=== PATIENT | female | born 1950 | race Caucasian/White ===

== ENCOUNTER 2017-12-24 21:56 | Inpatient (IN) | payer MEDICARE, OTHER ==
[2017-12-24] MEDS: GI COCKTAIL 50ML BTL(HYOSCYAMINE/MAALOX/LIDOCAINE VISCOUS)(1:3:1) PO (23:26)
[2017-12-24] MEDS: MORPHINE 4 MG/ML 1ML VIAL/SYRINGE (J2270) IV (23:26)
[2017-12-24] MEDS: PANTOPRAZOLE 40MG INJ (PROTONIX) (C9113) IV (23:26)
[2017-12-25 00:41] LABS: BASO % 0.3 % (0.0-1.0); EOS # 0.2 10^3/uL (0.0-0.50); EOS % 1.6 % (0.0-3.0); HEMATOCRIT 44.1 % (36.0-47.0); HEMOGLOBIN 13.9 g/dl (12.0-15.5); IMMATURE GRANULOCYTE % 0.3 % (0-3.0); LYMPH # 1.2 10^3/uL (1.5-4.5); MEAN CORPUSCULAR HEMOGLOBIN 26.6 pg (27.0-33.0); MEAN CORPUSCULAR HGB CONC 31.5 g/dl (32.0-36.5); MEAN CORPUSCULAR VOLUME 84.3 fl (80.0-96.0); MONO # 1.1 10^3/uL (0.0-0.8); MONO % 9.3 % (0.0-5.0); NEUTROPHILS # 9.1 10^3/uL (1.8-7.7); NEUTROPHILS % 78.5 % (36.0-66.0); PLATELET COUNT, AUTOMATED 289 10^3/uL (150-450); RED BLOOD COUNT 5.23 10^6/uL (4.00-5.40); RED CELL DISTRIBUTION WIDTH 14.4 % (11.5-14.5); WHITE BLOOD COUNT 11.6 10^3/uL (4.0-10.0)
[2017-12-25 00:44] LABS: ALBUMIN 3.4 GM/DL (3.2-5.2); ALBUMIN/GLOBULIN RATIO 0.97 (1.00-1.93); ALKALINE PHOSPHATASE 521 U/L (45-117); ALT/SGPT 207 U/L (12-78); ANION GAP 10 MEQ/L (8-16); AST/SGOT 235 U/L (7-37); BILIRUBIN,DIRECT 3.5 MG/DL (0.0-0.2); BILIRUBIN,TOTAL 4.2 MG/DL (0.2-1.0); BLOOD UREA NITROGEN 16 MG/DL (7-18); CALCIUM LEVEL 8.9 MG/DL (8.8-10.2); CARBON DIOXIDE LEVEL 26 MEQ/L (21-32); CHLORIDE LEVEL 105 MEQ/L (98-107); CPK CREATINE PHOSPHOKINASE 115 U/L (26-192); CREATININE FOR GFR 1.36 MG/DL (0.55-1.30); GLOMERULAR FILTRATION RATE 41.3 (>45); GLUCOSE, FASTING 188 MG/DL (70-100); LIPASE 643 U/L (73-393); MB/CK RELATIVE INDEX 1.73 (< OR =4); POTASSIUM SERUM 4.4 MEQ/L (3.5-5.1); SODIUM LEVEL 141 MEQ/L (136-145); TOTAL PROTEIN 6.9 GM/DL (6.4-8.2); TROPONIN I 0.04 NG/ML (< 0.10)
[2017-12-25] MEDS ORDERED: ISOVUE-370 76% 100ML VIAL (Q9967) As Ordered (01:13)
[2017-12-25] MEDS: diphenhydrAMINE INJ 50MG/ML VIAL (J1200) IV (01:43)
[2017-12-25] MEDS: MORPHINE 4 MG/ML 1ML VIAL/SYRINGE (J2270) IV ×2 (01:44→11:33)
[2017-12-25] MEDS: NS 1,000 ML IV ×3 (03:15→21:35)
[2017-12-25] MEDS ORDERED: DEXTROSE 50% 50 ML SYRINGE IV (05:15)
[2017-12-25] MEDS ORDERED: ONDANSETRON 4MG/2ML VIAL (J2405) IV (05:15)
[2017-12-25] MEDS ORDERED: GLUCAGON FOR INJ 1 MG VIAL (J1610) SC (05:15)
[2017-12-25] MEDS ORDERED: GLUCOSE 4 GM CHEW TABLET PO (05:15)
[2017-12-25] MEDS ORDERED: NYSTATIN 100,000 UNITS/GM TOPICAL PWD 15 GM TOP (05:30)
[2017-12-25] MEDS ORDERED: DOCUSATE SODIUM 100 MG CAP PO (05:30)
[2017-12-25] MEDS ORDERED: LIDOCAINE 2% JELLY 30 ML TOP (05:30)
[2017-12-25] MEDS ORDERED: diphenhydrAMINE CREAM 30GM TOP (05:30)
[2017-12-25 06:58] LABS: BASO # 0.1 10^3/uL (0.0-0.2); BASO % 0.6 % (0.0-1.0); EOS # 0.2 10^3/uL (0.0-0.50); EOS % 2.4 % (0.0-3.0); HEMATOCRIT 40.7 % (36.0-47.0); HEMOGLOBIN 12.9 g/dl (12.0-15.5); IMMATURE GRANULOCYTE % 0.4 % (0-3.0); LYMPH # 1.5 10^3/uL (1.5-4.5); LYMPH % 16.3 % (24.0-44.0); MEAN CORPUSCULAR HEMOGLOBIN 26.4 pg (27.0-33.0); MEAN CORPUSCULAR HGB CONC 31.7 g/dl (32.0-36.5); MEAN CORPUSCULAR VOLUME 83.4 fl (80.0-96.0); MONO # 1.1 10^3/uL (0.0-0.8); MONO % 11.9 % (0.0-5.0); NEUTROPHILS # 6.1 10^3/uL (1.8-7.7); NEUTROPHILS % 68.4 % (36.0-66.0); PLATELET COUNT, AUTOMATED 278 10^3/uL (150-450); RED BLOOD COUNT 4.88 10^6/uL (4.00-5.40); RED CELL DISTRIBUTION WIDTH 14.4 % (11.5-14.5); WHITE BLOOD COUNT 8.9 10^3/uL (4.0-10.0)
[2017-12-25] MEDS: PIPERACILLIN/TAZOBACTAM SOD 3.375 GM in D5W MINI-BAG PLUS 50 ML IV ×3 (07:07→21:35)
[2017-12-25 07:23] LABS: ALBUMIN 3.2 GM/DL (3.2-5.2); ALBUMIN/GLOBULIN RATIO 0.82 (1.00-1.93); ALKALINE PHOSPHATASE 496 U/L (45-117); ALT/SGPT 176 U/L (12-78); ANION GAP 10 MEQ/L (8-16); AST/SGOT 192 U/L (7-37); BILIRUBIN,TOTAL 5.4 MG/DL (0.2-1.0); BLOOD UREA NITROGEN 18 MG/DL (7-18); CARBON DIOXIDE LEVEL 25 MEQ/L (21-32); CHLORIDE LEVEL 106 MEQ/L (98-107); CREATININE FOR GFR 1.35 MG/DL (0.55-1.30); GLOMERULAR FILTRATION RATE 41.6 (>45); GLUCOSE, FASTING 162 MG/DL (70-100); POTASSIUM SERUM 4.3 MEQ/L (3.5-5.1); SODIUM LEVEL 141 MEQ/L (136-145); TOTAL PROTEIN 7.1 GM/DL (6.4-8.2); TROPONIN I 0.04 NG/ML (< 0.10)
[2017-12-25] MEDS: HumaLOG INSULIN (NovoLOG) PER UNIT SC ×4 (09:06→21:00)
[2017-12-25] MEDS: VITAMIN D 1,000 INTERNATIONAL UNITS TABLET PO ×2 (09:09→21:34)
[2017-12-25] MEDS: ENOXAPARIN 40 MG/0.4 ML SYRINGE (J1650) SC (09:27)
[2017-12-25] MEDS: VENLAFAXINE **XR** 75MG CAPSULE PO (09:28)
[2017-12-25] MEDS: busPIRone 5 MG TAB PO ×2 (09:28→21:34)
[2017-12-25] MEDS: LOSARTAN 50 MG TAB PO (09:30)
[2017-12-25 11:37] LABS: BEDSIDE GLUCOSE 154 MG/DL (80-115)
[2017-12-25] MEDS: diphenhydrAMINE 50 MG CAP PO (16:49)
[2017-12-25 17:51] LABS: BEDSIDE GLUCOSE 153 MG/DL (80-115)
[2017-12-25] MEDS ORDERED: MIDAZOLAM INJ 2 MG/2 ML VIAL (J2250) As Ordered (18:30)
[2017-12-25] MEDS ORDERED: fentaNYL 100 MCG/2 ML INJECTION (J3010) As Ordered (18:30)
[2017-12-25] MEDS ORDERED: SUCCINYLCHOLINE 100 MG/5 ML SYRINGE (J0330) As Ordered (18:32)
[2017-12-25] MEDS ORDERED: PROPOFOL 200 MG/20 ML VIAL As Ordered (18:32)
[2017-12-25] MEDS ORDERED: ROCURONIUM BROMIDE 50 MG/5 ML VIAL As Ordered (18:32)
[2017-12-25] MEDS ORDERED: LIDOCAINE 2% INJ 100 MG/5 ML SDV (FOR ANES.) As Ordered (18:32)
[2017-12-25] MEDS ORDERED: PHENYLephrine HCL 500 MCG/5 ML (100MCG/ML) SYRINGE (J2370) As Ordered ×3 (19:04→19:26)
[2017-12-25] MEDS ORDERED: ePHEDrine SULFATE 25 MG/5 ML(5MG/ML) SYRINGE As Ordered (19:04)
[2017-12-25] MEDS: ISOVUE-300 61% 50ML VIAL (Q9967) As Ordered ×2 (19:14→19:30)
[2017-12-25] MEDS: GLUCAGON FOR INJ 1 MG VIAL (J1610) As Ordered (19:31)
[2017-12-25] MEDS ORDERED: SUGAMMADEX SODIUM 500 MG/5 ML VIAL (BRIDION) As Ordered (19:45)
[2017-12-25 20:19] LABS: BEDSIDE GLUCOSE 198 MG/DL (80-115)
[2017-12-25] MEDS ORDERED: HYDROMORPHONE HCL 0.5 MG/ 0.5 ML SYRINGE (J1170 PER 1) IV (20:30)
[2017-12-25] MEDS ORDERED: fentaNYL 100 MCG/2 ML INJECTION (J3010) IV (20:30)
[2017-12-25] MEDS ORDERED: PERCOCET 5MG/325MG TAB PO (20:30)
[2017-12-25] MEDS ORDERED: ONDANSETRON 4MG/2ML VIAL (J2405) As Ordered (20:30)
[2017-12-25] MEDS: ONDANSETRON 4MG/2ML VIAL (J2405) IV (20:30)
[2017-12-25] MEDS ORDERED: METOCLOPRAMIDE INJ 10MG/2ML VIAL (J2765) As Ordered (20:39)
[2017-12-25] MEDS: METOCLOPRAMIDE INJ 10MG/2ML VIAL (J2765) IV (20:39)
[2017-12-25] MEDS: LR 1,000 ML IV (21:20)
[2017-12-25] MEDS: PANTOPRAZOLE 40MG INJ (PROTONIX) (C9113) IV (21:34)
[2017-12-25] MEDS: IPRATROPIUM 0.5MG/ALBUTEROL 2.5MG INH SOL UD 3ML (DUONEB)(J7620) NEB (22:09)
[2017-12-26] MEDS: PIPERACILLIN/TAZOBACTAM SOD 3.375 GM in D5W MINI-BAG PLUS 50 ML IV ×4 (00:30→17:51)
[2017-12-26] MEDS: NS 1,000 ML IV ×3 (05:14→16:35)
[2017-12-26 06:15] LABS: BASO % 0.4 % (0.0-1.0); EOS # 0.2 10^3/uL (0.0-0.50); EOS % 1.5 % (0.0-3.0); HEMATOCRIT 36.4 % (36.0-47.0); HEMOGLOBIN 11.4 g/dl (12.0-15.5); IMMATURE GRANULOCYTE % 0.3 % (0-3.0); LYMPH # 0.9 10^3/uL (1.5-4.5); LYMPH % 9.1 % (24.0-44.0); MEAN CORPUSCULAR HEMOGLOBIN 26.5 pg (27.0-33.0); MEAN CORPUSCULAR HGB CONC 31.3 g/dl (32.0-36.5); MEAN CORPUSCULAR VOLUME 84.7 fl (80.0-96.0); MONO # 0.8 10^3/uL (0.0-0.8); MONO % 7.5 % (0.0-5.0); NEUTROPHILS # 8.4 10^3/uL (1.8-7.7); NEUTROPHILS % 81.2 % (36.0-66.0); PLATELET COUNT, AUTOMATED 239 10^3/uL (150-450); RED CELL DISTRIBUTION WIDTH 14.8 % (11.5-14.5); WHITE BLOOD COUNT 10.4 10^3/uL (4.0-10.0)
[2017-12-26 06:44] LABS: ALBUMIN 2.7 GM/DL (3.2-5.2); ALBUMIN/GLOBULIN RATIO 0.73 (1.00-1.93); ALKALINE PHOSPHATASE 442 U/L (45-117); ALT/SGPT 131 U/L (12-78); ANION GAP 8 MEQ/L (8-16); AST/SGOT 124 U/L (7-37); BILIRUBIN,TOTAL 3.7 MG/DL (0.2-1.0); BLOOD UREA NITROGEN 24 MG/DL (7-18); CALCIUM LEVEL 8.6 MG/DL (8.8-10.2); CARBON DIOXIDE LEVEL 24 MEQ/L (21-32); CHLORIDE LEVEL 111 MEQ/L (98-107); CREATININE FOR GFR 1.36 MG/DL (0.55-1.30); GLOMERULAR FILTRATION RATE 41.3 (>45); GLUCOSE, FASTING 131 MG/DL (70-100); MAGNESIUM LEVEL 2.4 MG/DL (1.8-2.4); POTASSIUM SERUM 4.3 MEQ/L (3.5-5.1); SODIUM LEVEL 143 MEQ/L (136-145); TOTAL PROTEIN 6.4 GM/DL (6.4-8.2)
[2017-12-26] MEDS: HumaLOG INSULIN (NovoLOG) PER UNIT SC ×4 (09:30→20:56)
[2017-12-26] MEDS: LOSARTAN 50 MG TAB PO (09:31)
[2017-12-26] MEDS: VENLAFAXINE **XR** 75MG CAPSULE PO (09:31)
[2017-12-26] MEDS: busPIRone 5 MG TAB PO ×2 (09:31→21:02)
[2017-12-26] MEDS: ENOXAPARIN 40 MG/0.4 ML SYRINGE (J1650) SC (09:31)
[2017-12-26 12:07] LABS: BEDSIDE GLUCOSE 146 MG/DL (80-115)
[2017-12-26 17:08] LABS: BEDSIDE GLUCOSE 143 MG/DL (80-115)
[2017-12-26] MEDS ORDERED: SLF 3 ML SYR IV (17:45)
[2017-12-26] MEDS: VITAMIN D 1,000 INTERNATIONAL UNITS TABLET PO (21:02)
[2017-12-26] MEDS: PANTOPRAZOLE 40MG INJ (PROTONIX) (C9113) IV (21:02)
[2017-12-26] MEDS: SLF 3 ML SYR IV (21:02)
[2017-12-27] MEDS: PIPERACILLIN/TAZOBACTAM SOD 3.375 GM in D5W MINI-BAG PLUS 50 ML IV ×5 (00:10→23:21)
[2017-12-27 00:11] LABS: BEDSIDE GLUCOSE 177 MG/DL (80-115)
[2017-12-27] MEDS: SLF 3 ML SYR IV ×3 (05:42→22:00)
[2017-12-27 06:30] LABS: BASO % 0.4 % (0.0-1.0); EOS # 0.3 10^3/uL (0.0-0.50); HEMATOCRIT 35.4 % (36.0-47.0); HEMOGLOBIN 10.9 g/dl (12.0-15.5); IMMATURE GRANULOCYTE % 0.2 % (0-3.0); LYMPH # 0.9 10^3/uL (1.5-4.5); LYMPH % 11.3 % (24.0-44.0); MEAN CORPUSCULAR HEMOGLOBIN 26.5 pg (27.0-33.0); MEAN CORPUSCULAR HGB CONC 30.8 g/dl (32.0-36.5); MEAN CORPUSCULAR VOLUME 85.9 fl (80.0-96.0); MONO # 0.8 10^3/uL (0.0-0.8); NEUTROPHILS # 6.1 10^3/uL (1.8-7.7); NEUTROPHILS % 74.1 % (36.0-66.0); PLATELET COUNT, AUTOMATED 221 10^3/uL (150-450); RED BLOOD COUNT 4.12 10^6/uL (4.00-5.40); RED CELL DISTRIBUTION WIDTH 14.8 % (11.5-14.5); WHITE BLOOD COUNT 8.3 10^3/uL (4.0-10.0)
[2017-12-27 06:50] LABS: ALBUMIN 2.5 GM/DL (3.2-5.2); ALBUMIN/GLOBULIN RATIO 0.66 (1.00-1.93); ALKALINE PHOSPHATASE 389 U/L (45-117); ALT/SGPT 91 U/L (12-78); ANION GAP 10 MEQ/L (8-16); AST/SGOT 75 U/L (7-37); BILIRUBIN,TOTAL 1.6 MG/DL (0.2-1.0); BLOOD UREA NITROGEN 16 MG/DL (7-18); CALCIUM LEVEL 8.1 MG/DL (8.8-10.2); CARBON DIOXIDE LEVEL 23 MEQ/L (21-32); CHLORIDE LEVEL 112 MEQ/L (98-107); CREATININE FOR GFR 1.02 MG/DL (0.55-1.30); GLOMERULAR FILTRATION RATE 57.5 (>45); GLUCOSE, FASTING 150 MG/DL (70-100); POTASSIUM SERUM 4.1 MEQ/L (3.5-5.1); SODIUM LEVEL 145 MEQ/L (136-145); TOTAL PROTEIN 6.3 GM/DL (6.4-8.2)
[2017-12-27] MEDS: LOSARTAN 50 MG TAB PO (07:35)
[2017-12-27] MEDS: HumaLOG INSULIN (NovoLOG) PER UNIT SC ×3 (07:40→19:56)
[2017-12-27] MEDS: NS 1,000 ML IV (08:39)
[2017-12-27] MEDS: busPIRone 5 MG TAB PO ×2 (08:40→20:23)
[2017-12-27] MEDS: VENLAFAXINE **XR** 75MG CAPSULE PO (08:41)
[2017-12-27 12:07] LABS: BEDSIDE GLUCOSE 142 MG/DL (80-115)
[2017-12-27] MEDS ORDERED: dexameTHASONE 4 MG/ML 1ML VIAL (J1100) As Ordered (12:31)
[2017-12-27] MEDS ORDERED: GLYCOPYRROLATE INJ 0.2 MG/ML 2 ML VIAL As Ordered (12:31)
[2017-12-27] MEDS ORDERED: PROPOFOL 200 MG/20 ML VIAL As Ordered (12:31)
[2017-12-27] MEDS ORDERED: fentaNYL 100 MCG/2 ML INJECTION (J3010) As Ordered (12:31)
[2017-12-27] MEDS ORDERED: ROCURONIUM BROMIDE 50 MG/5 ML VIAL As Ordered (12:31)
[2017-12-27] MEDS ORDERED: NEOSTIGMINE 10 MG/10 ML VIAL (J2710) As Ordered (12:31)
[2017-12-27] MEDS ORDERED: KETOROLAC 60 MG/2 ML VIAL (J1885) As Ordered (12:31)
[2017-12-27] MEDS ORDERED: MIDAZOLAM INJ 2 MG/2 ML VIAL (J2250) As Ordered (12:31)
[2017-12-27] MEDS ORDERED: LIDOCAINE PRES-FREE 2% 10ML AMP As Ordered (12:31)
[2017-12-27] MEDS ORDERED: ONDANSETRON 4MG/2ML VIAL (J2405) As Ordered (12:31)
[2017-12-27] MEDS: BUPIVACAINE HCL 0.25% 30 ML VIAL As Ordered (15:01)
[2017-12-27] MEDS ORDERED: HYDROmorphone HCL 2 MG/ML 1ML VIAL (J1170) As Ordered (15:17)
[2017-12-27] MEDS ORDERED: PHENYLEPHRINE INJ 10MG/ML VIAL (J2370) As Ordered (15:29)
[2017-12-27] MEDS ORDERED: ePHEDrine SULFATE 25 MG/5 ML(5MG/ML) SYRINGE As Ordered (15:29)
[2017-12-27] MEDS ORDERED: SUGAMMADEX SODIUM 500 MG/5 ML VIAL (BRIDION) As Ordered (16:26)
[2017-12-27] MEDS ORDERED: ALBUTEROL 6.7GM INHALER **FOR ANES. CART/OMNICELL ONLY As Ordered (16:26)
[2017-12-27 16:37] LABS: BEDSIDE GLUCOSE 176 MG/DL (80-115)
[2017-12-27] MEDS ORDERED: LEVALBUTEROL 1.25 MG/0.5 ML CONCENTRATE NEB As Ordered (16:39)
[2017-12-27] MEDS: LEVALBUTEROL 1.25 MG/0.5 ML CONCENTRATE NEB INH (16:42)
[2017-12-27] MEDS ORDERED: HYDROMORPHONE HCL 0.5 MG/ 0.5 ML SYRINGE (J1170 PER 1) IV (16:45)
[2017-12-27] MEDS ORDERED: ACETAMINOPHEN TAB 650MG DOSE (2X325MG) PO (16:45)
[2017-12-27] MEDS ORDERED: PERCOCET 5MG/325MG TAB PO (16:45)
[2017-12-27] MEDS ORDERED: fentaNYL 100 MCG/2 ML INJECTION (J3010) IV (16:45)
[2017-12-27] MEDS ORDERED: ONDANSETRON 4MG/2ML VIAL (J2405) IV (16:45)
[2017-12-27 18:45] LABS: BEDSIDE GLUCOSE 176 MG/DL (80-115)
[2017-12-27] MEDS: LR 1,000 ML IV (18:52)
[2017-12-27 20:09] LABS: BEDSIDE GLUCOSE 174 MG/DL (80-115)
[2017-12-27] MEDS: VITAMIN D 1,000 INTERNATIONAL UNITS TABLET PO (20:23)
[2017-12-27] MEDS: ENOXAPARIN 40 MG/0.4 ML SYRINGE (J1650) SC (23:21)
[2017-12-27 23:59] LABS: BEDSIDE GLUCOSE 245 MG/DL (80-115)
[2017-12-28] MEDS: HumaLOG INSULIN (NovoLOG) PER UNIT SC ×10 (00:07→21:00)
[2017-12-28] MEDS: PIPERACILLIN/TAZOBACTAM SOD 3.375 GM in D5W MINI-BAG PLUS 50 ML IV (05:29)
[2017-12-28] MEDS: SLF 3 ML SYR IV ×3 (05:29→21:39)
[2017-12-28 06:59] LABS: HEMATOCRIT 33.1 % (36.0-47.0); HEMOGLOBIN 10.4 g/dl (12.0-15.5); IMMATURE GRANULOCYTE % 0.5 % (0-3.0); LYMPH # 0.6 10^3/uL (1.5-4.5); LYMPH % 7.5 % (24.0-44.0); MEAN CORPUSCULAR HEMOGLOBIN 26.3 pg (27.0-33.0); MEAN CORPUSCULAR HGB CONC 31.4 g/dl (32.0-36.5); MEAN CORPUSCULAR VOLUME 83.8 fl (80.0-96.0); MONO # 0.5 10^3/uL (0.0-0.8); MONO % 5.5 % (0.0-5.0); NEUTROPHILS # 7.1 10^3/uL (1.8-7.7); NEUTROPHILS % 86.5 % (36.0-66.0); PLATELET COUNT, AUTOMATED 235 10^3/uL (150-450); RED BLOOD COUNT 3.95 10^6/uL (4.00-5.40); RED CELL DISTRIBUTION WIDTH 14.7 % (11.5-14.5); WHITE BLOOD COUNT 8.2 10^3/uL (4.0-10.0)
[2017-12-28 07:09] LABS: ALBUMIN 2.3 GM/DL (3.2-5.2); ALBUMIN/GLOBULIN RATIO 0.62 (1.00-1.93); ALKALINE PHOSPHATASE 328 U/L (45-117); ALT/SGPT 75 U/L (12-78); ANION GAP 8 MEQ/L (8-16); AST/SGOT 63 U/L (7-37); BILIRUBIN,TOTAL 0.9 MG/DL (0.2-1.0); BLOOD UREA NITROGEN 17 MG/DL (7-18); CARBON DIOXIDE LEVEL 23 MEQ/L (21-32); CHLORIDE LEVEL 110 MEQ/L (98-107); GLOMERULAR FILTRATION RATE > 60.0 (>45); GLUCOSE, FASTING 224 MG/DL (70-100); MAGNESIUM LEVEL 2.1 MG/DL (1.8-2.4); POTASSIUM SERUM 4.7 MEQ/L (3.5-5.1); SODIUM LEVEL 141 MEQ/L (136-145)
[2017-12-28] MEDS: VENLAFAXINE **XR** 75MG CAPSULE PO (08:26)
[2017-12-28] MEDS: busPIRone 5 MG TAB PO ×2 (08:26→21:39)
[2017-12-28] MEDS: FUROSEMIDE 20 MG TAB PO (08:26)
[2017-12-28] MEDS: PANTOPRAZOLE 40MG TAB (PROTONIX) PO (08:26)
[2017-12-28] MEDS: LOSARTAN 50 MG TAB PO (08:26)
[2017-12-28 12:00] LABS: BEDSIDE GLUCOSE 190 MG/DL (80-115)
[2017-12-28 16:46] LABS: BEDSIDE GLUCOSE 143 MG/DL (80-115)
[2017-12-28 21:00] LABS: BEDSIDE GLUCOSE 215 MG/DL (80-115)
[2017-12-28] MEDS: VITAMIN D 1,000 INTERNATIONAL UNITS TABLET PO (21:38)
[2017-12-28] MEDS: ENOXAPARIN 40 MG/0.4 ML SYRINGE (J1650) SC (23:20)
[2017-12-29] MEDS: NORCO, ANEXSIA 5/325MG TABLET (HYDROcodone/ACETAMINOPHEN) PO ×4 (04:32→21:28)
[2017-12-29] MEDS: SLF 3 ML SYR IV ×3 (05:44→21:28)
[2017-12-29 07:28] LABS: BASO % 0.3 % (0.0-1.0); EOS # 0.3 10^3/uL (0.0-0.50); EOS % 2.6 % (0.0-3.0); HEMATOCRIT 34.8 % (36.0-47.0); IMMATURE GRANULOCYTE % 0.4 % (0-3.0); LYMPH # 1.3 10^3/uL (1.5-4.5); LYMPH % 10.6 % (24.0-44.0); MEAN CORPUSCULAR HEMOGLOBIN 26.8 pg (27.0-33.0); MEAN CORPUSCULAR HGB CONC 31.6 g/dl (32.0-36.5); MEAN CORPUSCULAR VOLUME 84.7 fl (80.0-96.0); MONO # 1.4 10^3/uL (0.0-0.8); MONO % 11.2 % (0.0-5.0); NEUTROPHILS % 74.9 % (36.0-66.0); PLATELET COUNT, AUTOMATED 277 10^3/uL (150-450); RED BLOOD COUNT 4.11 10^6/uL (4.00-5.40); RED CELL DISTRIBUTION WIDTH 14.9 % (11.5-14.5)
[2017-12-29] MEDS: HumaLOG INSULIN (NovoLOG) PER UNIT SC ×4 (07:30→21:00)
[2017-12-29] MEDS: IPRATROPIUM 0.5MG/ALBUTEROL 2.5MG INH SOL UD 3ML (DUONEB)(J7620) NEB (07:38)
[2017-12-29 07:51] LABS: ALBUMIN 2.5 GM/DL (3.2-5.2); ALBUMIN/GLOBULIN RATIO 0.81 (1.00-1.93); ALKALINE PHOSPHATASE 313 U/L (45-117); ALT/SGPT 66 U/L (12-78); ANION GAP 10 MEQ/L (8-16); AST/SGOT 53 U/L (7-37); BILIRUBIN,TOTAL 0.9 MG/DL (0.2-1.0); BLOOD UREA NITROGEN 15 MG/DL (7-18); CALCIUM LEVEL 8.3 MG/DL (8.8-10.2); CARBON DIOXIDE LEVEL 26 MEQ/L (21-32); CHLORIDE LEVEL 108 MEQ/L (98-107); CREATININE FOR GFR 0.76 MG/DL (0.55-1.30); GLOMERULAR FILTRATION RATE > 60.0 (>45); GLUCOSE, FASTING 135 MG/DL (70-100); MAGNESIUM LEVEL 1.7 MG/DL (1.8-2.4); SODIUM LEVEL 144 MEQ/L (136-145); TOTAL PROTEIN 5.6 GM/DL (6.4-8.2)
[2017-12-29] MEDS ORDERED: MAG SULF 1GM/100ML (MAG RUN) 1 GM in APPROPRIATE DILUENT 1 EA IV (08:15)
[2017-12-29] MEDS: busPIRone 5 MG TAB PO ×2 (08:50→21:26)
[2017-12-29] MEDS: LOSARTAN 50 MG TAB PO (08:50)
[2017-12-29] MEDS: FUROSEMIDE 20 MG TAB PO (08:50)
[2017-12-29] MEDS: PANTOPRAZOLE 40MG TAB (PROTONIX) PO (08:50)
[2017-12-29] MEDS: MAG SULF 1GM/100ML (MAG RUN) 1 GM in APPROPRIATE DILUENT 1 EA IV (08:51)
[2017-12-29] MEDS: VENLAFAXINE **XR** 75MG CAPSULE PO (08:53)
[2017-12-29 11:22] LABS: APPEARANCE, URINE CLEAR (CLEAR); BACTERIA, URINE AUTO NEGATIVE (NEGATIVE); BILIRUBIN, URINE AUTO NEGATIVE (NEGATIVE); BLOOD, URINE BLOOD NEGATIVE (NEGATIVE); COLOR, URINE YELLOW (YELLOW); GLUCOSE, URINE (UA) AUTO NEGATIVE (NEGATIVE); KETONE, URINE AUTO NEGATIVE (NEGATIVE); LEUKOCYTE ESTERASE, URINE AUTO NEGATIVE (NEGATIVE); MUCUS, URINE SMALL (NEGATIVE); NITRITE, URINE AUTO NEGATIVE (NEGATIVE); PROTEIN, URINE AUTO NEGATIVE (NEGATIVE); RBC, URINE AUTO 1 /HPF (0-3); SPECIFIC GRAVITY URINE AUTO 1.011 (1.002-1.035); SQUAMOUS EPITHELIAL CELL UR AU 1 /HPF (0-6); UROBILINOGEN, URINE AUTO 0.2 mg/dL (0.0-2.0); WBC, URINE AUTO 1 /HPF (0-3)
[2017-12-29 12:01] LABS: BEDSIDE GLUCOSE 186 MG/DL (80-115)
[2017-12-29 14:38] LABS: ERYTHROCYTE SEDIMENTATION RATE 63 mm/hr (0-30)
[2017-12-29 14:43] LABS: C REACTIVE PROTEIN QUANTITATIV 6.15 MG/DL (0.00-0.30)
[2017-12-29] MEDS: FUROSEMIDE 40 MG/4 ML VIAL (J1940) IV (15:34)
[2017-12-29 16:34] LABS: BEDSIDE GLUCOSE 167 MG/DL (80-115)
[2017-12-29 20:20] LABS: BEDSIDE GLUCOSE 159 MG/DL (80-115)
[2017-12-29] MEDS: VITAMIN D 1,000 INTERNATIONAL UNITS TABLET PO (21:26)
[2017-12-29] MEDS: ENOXAPARIN 40 MG/0.4 ML SYRINGE (J1650) SC (22:55)
[2017-12-30] MEDS: SLF 3 ML SYR IV (05:24)
[2017-12-30 06:46] LABS: BASO # 0.1 10^3/uL (0.0-0.2); BASO % 0.6 % (0.0-1.0); EOS # 0.3 10^3/uL (0.0-0.50); EOS % 3.4 % (0.0-3.0); HEMATOCRIT 35.5 % (36.0-47.0); HEMOGLOBIN 11.1 g/dl (12.0-15.5); IMMATURE GRANULOCYTE % 0.7 % (0-3.0); LYMPH # 1.1 10^3/uL (1.5-4.5); LYMPH % 12.6 % (24.0-44.0); MEAN CORPUSCULAR HEMOGLOBIN 26.6 pg (27.0-33.0); MEAN CORPUSCULAR HGB CONC 31.3 g/dl (32.0-36.5); MEAN CORPUSCULAR VOLUME 84.9 fl (80.0-96.0); MONO # 1.2 10^3/uL (0.0-0.8); MONO % 12.8 % (0.0-5.0); NEUTROPHILS # 6.3 10^3/uL (1.8-7.7); NEUTROPHILS % 69.9 % (36.0-66.0); PLATELET COUNT, AUTOMATED 269 10^3/uL (150-450); RED BLOOD COUNT 4.18 10^6/uL (4.00-5.40); WHITE BLOOD COUNT 9.1 10^3/uL (4.0-10.0)
[2017-12-30 07:09] LABS: ALBUMIN 2.3 GM/DL (3.2-5.2); ALBUMIN/GLOBULIN RATIO 0.58 (1.00-1.93); ALKALINE PHOSPHATASE 276 U/L (45-117); ALT/SGPT 52 U/L (12-78); ANION GAP 8 MEQ/L (8-16); AST/SGOT 28 U/L (7-37); BLOOD UREA NITROGEN 12 MG/DL (7-18); CALCIUM LEVEL 8.3 MG/DL (8.8-10.2); CARBON DIOXIDE LEVEL 29 MEQ/L (21-32); CHLORIDE LEVEL 103 MEQ/L (98-107); CREATININE FOR GFR 0.85 MG/DL (0.55-1.30); GLOMERULAR FILTRATION RATE > 60.0 (>45); GLUCOSE, FASTING 164 MG/DL (70-100); MAGNESIUM LEVEL 1.6 MG/DL (1.8-2.4); POTASSIUM SERUM 3.3 MEQ/L (3.5-5.1); SODIUM LEVEL 140 MEQ/L (136-145); TOTAL PROTEIN 6.3 GM/DL (6.4-8.2)
[2017-12-30] MEDS: busPIRone 5 MG TAB PO (08:04)
[2017-12-30] MEDS: LOSARTAN 50 MG TAB PO (08:05)
[2017-12-30] MEDS: VENLAFAXINE **XR** 75MG CAPSULE PO (08:05)
[2017-12-30] MEDS: MAGNESIUM OXIDE 400 MG TAB (MAG-OX) PO (08:05)
[2017-12-30] MEDS: FUROSEMIDE 20 MG TAB PO (08:06)
[2017-12-30] MEDS: PANTOPRAZOLE 40MG TAB (PROTONIX) PO (08:06)
[2017-12-30] MEDS: POTASSIUM CHLORIDE 10 MEQ SR TABLET PO (08:06)
[2017-12-30] MEDS: HumaLOG INSULIN (NovoLOG) PER UNIT SC ×2 (08:07→12:37)
[2017-12-30] MEDS: MAG SULF 1GM/100ML (MAG RUN) 1 GM in APPROPRIATE DILUENT 1 EA IV (08:07)
[2017-12-30 11:46] LABS: BEDSIDE GLUCOSE 169 MG/DL (80-115)
== END 2017-12-30 14:10 | disposition home health service (06) | DRG 418 ==
LOC: M ED INP 12-25 05:14 → M ED 21:56 → M PCU 12-25 14:55 → M MS5PR 12-27 18:24
PROC: 0F798DZ Dilation of Common Bile Duct with Intraluminal Device, Via Natural or Artificial Opening Endoscopic (ICD-10-PCS; 2017-12-25 18:00)
PROC: 0FT44ZZ Resection of Gallbladder, Percutaneous Endoscopic Approach (ICD-10-PCS; principal; 2017-12-25 18:39)
DX: K80.61 Calculus of gallbladder and bile duct with cholecystitis, unspecified, with obstruction (principal); Z68.42 Body mass index [BMI] 45.0-49.9, adult; I50.30 Unspecified diastolic (congestive) heart failure; E66.01 Morbid (severe) obesity due to excess calories; E11.9 Type 2 diabetes mellitus without complications; I11.0 Hypertensive heart disease with heart failure; J44.9 Chronic obstructive pulmonary disease, unspecified; I87.2 Venous insufficiency (chronic) (peripheral); K59.00 Constipation, unspecified; L29.9 Pruritus, unspecified; M81.0 Age-related osteoporosis without current pathological fracture; E55.9 Vitamin D deficiency, unspecified; E78.5 Hyperlipidemia, unspecified; K21.9 Gastro-esophageal reflux disease without esophagitis; F41.9 Anxiety disorder, unspecified; F32.9 Major depressive disorder, single episode, unspecified; Z86.711 Personal history of pulmonary embolism; Z79.4 Long term (current) use of insulin; Z79.899 Other long term (current) drug therapy

== ENCOUNTER 2018-02-26 12:35 | Day surgery (SDC) | payer MEDICARE ==
[2018-02-26] MEDS ORDERED: NS 1,000 ML IV (13:15)
[2018-02-26 13:16] LABS: BEDSIDE GLUCOSE 137 MG/DL (80-115)
[2018-02-26] MEDS: LR 1,000 ML IV (13:34)
[2018-02-26] MEDS ORDERED: PROPOFOL 200 MG/20 ML VIAL As Ordered (16:39)
[2018-02-26] MEDS ORDERED: LIDOCAINE 2% INJ 100 MG/5 ML SDV (FOR ANES.) As Ordered (16:39)
[2018-02-26] MEDS ORDERED: ROCURONIUM BROMIDE 50 MG/5 ML VIAL As Ordered ×2 (16:39→17:07)
[2018-02-26] MEDS ORDERED: dexameTHASONE 4 MG/ML 1ML VIAL (J1100) As Ordered (16:39)
[2018-02-26] MEDS ORDERED: fentaNYL 100 MCG/2 ML INJECTION (J3010) As Ordered (16:39)
[2018-02-26] MEDS ORDERED: MIDAZOLAM INJ 2 MG/2 ML VIAL (J2250) As Ordered (16:39)
[2018-02-26] MEDS ORDERED: PHENYLephrine HCL 500 MCG/5 ML (100MCG/ML) SYRINGE (J2370) As Ordered (16:42)
[2018-02-26] MEDS: ISOVUE-300 61% 50ML VIAL (Q9967) As Ordered (17:00)
[2018-02-26] MEDS ORDERED: NEOSTIGMINE 10 MG/10 ML VIAL (J2710) As Ordered (17:02)
[2018-02-26] MEDS ORDERED: ONDANSETRON 4MG/2ML VIAL (J2405) As Ordered (17:02)
[2018-02-26] MEDS ORDERED: GLYCOPYRROLATE INJ 0.2 MG/ML 2 ML VIAL As Ordered (17:03)
[2018-02-26] MEDS ORDERED: LABETALOL HCL 100 MG/20 ML VIAL As Ordered (17:26)
[2018-02-26] MEDS ORDERED: ALBUTEROL SULFATE 2.5 MG/0.5 ML INH NEB SOLN As Ordered (17:57)
[2018-02-26] MEDS ORDERED: PERCOCET 5MG/325MG TAB PO (18:00)
[2018-02-26] MEDS ORDERED: fentaNYL 100 MCG/2 ML INJECTION (J3010) IV (18:00)
[2018-02-26] MEDS: ALBUTEROL SULFATE 2.5 MG/0.5 ML INH NEB SOLN INH (18:00)
[2018-02-26] MEDS ORDERED: LR 1,000 ML IV (18:00)
[2018-02-26] MEDS ORDERED: HYDROMORPHONE HCL 0.5 MG/ 0.5 ML SYRINGE (J1170 PER 1) IV (18:00)
[2018-02-26] MEDS ORDERED: ONDANSETRON 4MG/2ML VIAL (J2405) IV (18:00)
[2018-02-26 18:43] LABS: BEDSIDE GLUCOSE 164 MG/DL (80-115)
== END 2018-02-26 19:35 | disposition home or self-care (01) ==
LOC: M SDC 12:35
DX: K20.8 Other esophagitis (principal); K29.70 Gastritis, unspecified, without bleeding; K80.50 Calculus of bile duct without cholangitis or cholecystitis without obstruction; K83.8 Other specified diseases of biliary tract; K29.80 Duodenitis without bleeding; I10 Essential (primary) hypertension; E78.5 Hyperlipidemia, unspecified; E11.9 Type 2 diabetes mellitus without complications; Z79.4 Long term (current) use of insulin; Z79.899 Other long term (current) drug therapy; Z86.711 Personal history of pulmonary embolism
CPT/HCPCS: 43264

== ENCOUNTER → 2019-09-03 | Outpatient (REF) | payer MEDICARE ==
[~2019-09-03] MED LIST: ALEN70TA74 PO; ALEV220T26 PO; AMIT75TA PO; ATOR40TA75 PO; BACL1TAB9 PO; BANO25TA PO; BENA2CRE2 TOP; BISA10SU4 PR; BUPR75TA5 PO; BUSP15TA47 PO; CALC500T61 PO; CINN500C9 PO; COUM1TAB19 PO; DOCU10CA PO; ENUL10SO PO; FELO10TA28 PO; FLEEENE4 PR; FOSA70TA PO; FURO20TA2 PO; HUMA100I3 SC; INSUDET SC; INSULADS SC; IPRA0.00 INH; KLOR20TA42 PO; LANTINJ4 SC; LIDO2JELLY TOP; LIDO5DIS41 TD; LOSA50TA88 PO; MAXZTA PO; MICR10CA PO; MILKSUS5 PO; MIRA3350 PO; MULTCAP PO; MYCO15CR TOP; NEUR300C PO; NORC1TAB7 PO; NYST1POW9 TOP; OXYC15TA66 PO; OXYC1TAB23 PO; PPD5VL ID; PROT1TAB2 PO; TRAZ-252 PO; TYLE325T5 PR; VENL150T14 PO; VENL75CA47 PO; VENL75TA2 PO; VENTOLIN NEB NEB; VITA100066 PO; VITA400T PO; VITMTA PO
== END ==
LOC: M LAB REF 09:29
PROVIDERS: ATTEND Dermatology
DX: C44.1191 Basal cell carcinoma of skin of left upper eyelid, including canthus (principal)

== ENCOUNTER → 2020-10-13 | Outpatient (CLI) | payer MEDICARE ==
[~2020-10-13] MED LIST changes: -ALEN70TA74 PO; +ALEN70TA82 PO
--- NOTE | 2020-10-13 13:11 | REP ---
INDICATION: PAIN IN RT LEG COMPARISON: None. TECHNIQUE: AP and frog-lateral views of the right hip FINDINGS: Generalized age-related changes include subtle increased sclerosis to the acetabulum with minimal joint space narrowing. No further overt osteoarthritic or significant degenerative changes are appreciated. No evidence for acute or healed injury. Surrounding soft tissues are normal. IMPRESSION: Mild generalized age-related changes. <Electronically signed by Vic Carrasco > 10/13/20 [id number]
--- NOTE | 2020-10-13 13:16 | REP ---
INDICATION: PAIN IN RT LEG COMPARISON: None. TECHNIQUE: AP, lateral, bilateral oblique views right foot. FINDINGS: There is an acute intra-articular fracture at the base of the 5th toe proximal phalanx with overlying soft tissue swelling. Remainder of the examination demonstrates age-related osteopenia and degenerative changes. IMPRESSION: Nondisplaced intra-articular fracture at the base of the 5th toe proximal phalanx. <Electronically signed by Vic Carrasco > 10/13/20 [id number]
== END ==
LOC: M RAD 12:46
PROVIDERS: ATTEND Physician Assistant
DX: S92.511A Displaced fracture of proximal phalanx of right lesser toe(s), initial encounter for closed fracture (principal); M16.11 Unilateral primary osteoarthritis, right hip; M25.551 Pain in right hip; W06.XXXA Fall from bed, initial encounter; Y92.9 Unspecified place or not applicable; Y99.9 Unspecified external cause status

== ENCOUNTER 2023-05-02 08:42 | Emergency (ER) | payer MEDICARE, MEDICAID ==
[~2023-05-02] VITALS: Ht 152.4 cm; Wt 82.5 kg
[~2023-05-02 08:42] MED LIST changes: +ALEN70TA87 PO; -FOSA70TA PO; -KLOR20TA42 PO; +LOSA50TA28 PO; -LOSA50TA88 PO; -MAXZTA PO; +POTA-141 PO; +TRIA75TA10 PO
[2023-05-02 10:35] LABS: BASO # 0.1 10^3/uL (0.0-0.2); EOS # 0.4 10^3/uL (0.0-0.5); EOS % 4.8 % (0.0-3.0); HEMATOCRIT 34.1 % (36.0-47.0); HEMOGLOBIN 10.1 g/dl (12.0-15.5); LYMPH # 1.1 10^3/uL (1.5-5.0); LYMPH % 13.5 % (24.0-44.0); MEAN CORPUSCULAR HEMOGLOBIN 23.2 pg (27.0-33.0); MEAN CORPUSCULAR HGB CONC 29.6 g/dl (32.0-36.5); MEAN CORPUSCULAR VOLUME 78.2 fl (80.0-96.0); MONO # 0.8 10^3/uL (0.0-0.8); MONO % 10.3 % (2.0-8.0); NEUTROPHILS # 5.7 10^3/uL (1.5-8.5); NEUTROPHILS % 70.2 % (36.0-66.0); PLATELET COUNT, AUTOMATED 322 10^3/uL (150-450); RED BLOOD COUNT 4.36 10^6/uL (4.00-5.40); WHITE BLOOD COUNT 8.1 10^3/uL (4.0-10.0)
[2023-05-02 10:49] LABS: INR 1.08; PROTHROMBIN TIME 13.7 SECONDS (12.5-14.5)
[2023-05-02 10:52] LABS: D-DIMER QUANT 2.45 ug/mL (<0.5)
[2023-05-02 11:01] LABS: ALBUMIN 3.3 G/DL (3.2-5.2); ALKALINE PHOSPHATASE 125 U/L (46-116); ALT/SGPT 10 U/L (7.0-40); AST/SGOT 11 U/L (<34); BILIRUBIN,DIRECT 0.1 MG/DL (<0.4); BILIRUBIN,TOTAL 0.4 MG/DL (0.3-1.2); BLOOD UREA NITROGEN 21 MG/DL (9-23); CALCIUM LEVEL 8.6 MG/DL (8.3-10.6); CARBON DIOXIDE LEVEL 26 MMOL/L (20-31); CHLORIDE LEVEL 109 MMOL/L (98-107); CK-MB VALUE MASS < 1.0 NG/ML (<3.6); CPK CREATINE PHOSPHOKINASE 40 U/L (34-145); CREATININE FOR GFR 0.86 MG/DL (0.55-1.30); GLOMERULAR FILTRATION RATE > 60.0 (>39); GLUCOSE, FASTING 182 MG/DL (74-106); POTASSIUM SERUM 4.2 MMOL/L (3.5-5.1); SODIUM LEVEL 141 MMOL/L (136-145)
[2023-05-02 11:05] LABS: THYROID STIMULATING HORMONE 2.568 uIU/ML (0.55-4.78); THYROXINE (T4) 8.4 UG/DL (4.5-10.9)
[2023-05-02] MEDS ORDERED: ISOVUE-370 76% 100ML VIAL As Ordered ONE (11:26)
[2023-05-02 12:19] LABS: CK-MB VALUE MASS < 1.0 NG/ML (<3.6)
[2023-05-02 12:21] LABS: CPK CREATINE PHOSPHOKINASE 58 U/L (34-145); MB/CK RELATIVE INDEX 1.72 (< OR =4)
[2023-05-02] MEDS ORDERED: TRAM50TA2 PO (12:21)
[2023-05-02 12:34] VITALS: BP 145/83; TEMP 97.5; O2SAT 96
[2023-05-02] MEDS ORDERED: traMADol 50 MG TAB PO ONE (12:45)
== END 2023-05-02 12:49 | disposition home or self-care (01) ==
LOC: M ED 08:42
DX: S22.32XA Fracture of one rib, left side, initial encounter for closed fracture (principal); J91.8 Pleural effusion in other conditions classified elsewhere; X58.XXXA Exposure to other specified factors, initial encounter; Y92.9 Unspecified place or not applicable; Y93.89 Activity, other specified; Y99.9 Unspecified external cause status; E11.9 Type 2 diabetes mellitus without complications; Z86.711 Personal history of pulmonary embolism; Z87.09 Personal history of other diseases of the respiratory system; Z82.49 Family history of ischemic heart disease and other diseases of the circulatory system
CPT/HCPCS: 71101; 71275; 80048; 80076; 82550; 82553; 83880; 84436; 84443; 84484; 85025; 85379; 85610; 93005; 94010; 99284; Q9967